=== PATIENT | male | born 1945 | race Caucasian/White ===

== ENCOUNTER 2021-09-17 09:00 | Outpatient (CLI) | payer MEDICARE | END 2021-09-17 09:01 | disposition home or self-care (01) | LOC: RT 09:00 | PROVIDERS: ATTEND Internal Medicine Hematology & Oncology | DX: Z01.810 Encounter for preprocedural cardiovascular examination (principal); C34.91 Malignant neoplasm of unspecified part of right bronchus or lung | CPT/HCPCS: 94010; 94727; 94729 ==

== ENCOUNTER 2021-09-27 07:52 | Outpatient (CLI) | payer MEDICARE ==
[2021-09-27] MEDS ORDERED: GADOBUTROL 10 MMOL/10 ML VIAL ONE (09:07)
--- NOTE | 2021-09-27 11:01 | MRI Report ---
PROCEDURE: Brain W/WO INDICATIONS: LUNG CA CONTRAST: IV CONTRAST: Gadavist ml: 9 TECHNIQUE: Noncontrast axial T1 spin echo, axial T2 fast spin echo, sagittal and axial FLAIR, coronal T2 fast sp in echo, axial gradient echo, axial diffusion and ADC through the brain. After the administration of contrast, axial and coronal T1 spin echo with fat saturation through the brain. COMPARISON: None. FINDINGS: Image quality: Excellent. CSF spaces: Basal cisterns are patent. No extra-axial fluid collections. Ventricles are normal in size and shape. Brain: No midline shift. No intracranial bleeds or masses. No abnormal intracranial enhancement. There is cerebral volume loss for age. There is periventricular white matter chronic small vessel is chemic change. The brainstem appears normal. Diffusion-weighted images demonstrate no acute ischemi c insults. No chronic ischemic insults. Normal intravascular flow voids are present. Skull and face: Calvarial marrow is normal in signal. Orbits appear normal. Sinuses: Bilateral maxillary sinus retention cysts are present. Mild mucosal thickening in the bilat eral ethmoid and sphenoid sinuses. Sinuses and mastoids appear otherwise clear. IMPRESSION: 1. Volume loss and small vessel ischemic disease. 2. Sinus disease. Reviewed by: Lanre Roque MD on 09/27/2021 11:00 AM [facility] Approved by: Lanre Roque MD on 09/27/2021 11:00 AM PST Station ID: [id number]
[2021-09-29] MEDS ORDERED: GADOBUTROL 10 MMOL/10 ML VIAL IVP ONE (08:01)
== END 2021-09-27 07:53 | disposition home or self-care (01) ==
LOC: LAB 07:52 → DI 07:53
PROVIDERS: ATTEND Internal Medicine Hematology & Oncology
DX: C34.91 Malignant neoplasm of unspecified part of right bronchus or lung (principal); I67.82 Cerebral ischemia; J32.9 Chronic sinusitis, unspecified
CPT/HCPCS: 36415; 70553; 82565; A9585